=== PATIENT | female | born 1990 | race Caucasian/White ===

== ENCOUNTER 2016-12-28 19:36 | Emergency (ER) | payer OTHER ==
[2016-12-28 19:42] VITALS: RESP 16; TEMP 97.5
--- NOTE | 2016-12-28 20:10 | EDPHY ---
General Time Seen by Provider: 12/28/16 19:54 Narrative: CHIEF COMPLAINT: Hand laceration HISTORY OF PRESENT ILLNESS: hand laceration. cut the palm of her left hand while trying to get the PET of an avocado out with a knife. This is just proximal to the left pinky MCP joint. Moderate pain that has improved. Minimal bleeding that stopped with pressure. No numbness. No deficit of the pinky finger. No injury elsewhere. Tetanus is up-to-date as of 2016. Pain is worse with palpation and movement. Improved with rest. No radiating pain. No other associated complaints or modifying factors. REVIEW OF SYSTEMS: Ten systems reviewed and are negative unless otherwise noted in the HPI EXAMINATION General Appearance: Alert, no distress Head: normocephalic, atraumatic Eyes: Pupils equal and round, no conjunctival pallor or injection Cardiovascular: Symmetric radial pulses are 2+. Brisk cap refill in all 10 fingers. Neurological: A&O, nonfocal, Sensory symmetric. Strength symmetric. Skin: Warm and dry, no rash . 1.25 cm laceration to the palm of the left hand. Just proximal to the 5th MCP. Minimal bleeding. No foreign body appreciated. Neurovascular intact distally. Extremities: Tender over the area of laceration. She retains full flexion extension of all 5 fingers of the affected hand. Brisk cap refill and neurovascular intact distally. MDM: 8:05 p.m. laceration to the palm of the left hand just proximal to the MCP joint. No tendon involvement. Bleeding controlled. Neurovascular intact. I have anesthetized the wound. We will irrigate The wound and suture repair. 9:25 p.m. laceration to the palm left hand. She has been suture repaired without complication. She remains neuro intact post suture repair. There is full flexion extension of the affected finger. Wound care discussed. Return here in 7-10 days for suture removal. Return sooner for signs of infection as discussed. PROCEDURE: Laceration repair Consent: Verbal Location: Left hand, palmar Length of repair: 1.5 cm Complexity: simple Layer involvement: single Anesthesia: local anesthesia, lidocaine 1% plain, 5 mL Irrigation: Extensive Debridement: none Procedure description: after anesthesia the wound was explored. No foreign body in the wound bed. Flexor apparatus fully intact pre and post procedure. Wound was closed with 5-0 Ethilon. Good approximation of the borders. Good hemostasis noted no complication. Suture/Staple material: 5-0 Ethilon, 5 simple interrupted sutures. Wound care: Routine as discussed Suture/Staple removal: 7-10 Days SUPERVISION: This patient was independently evaluated without the aide of supervising physician. - History Smoking Status: Never smoked - Objective Vital Signs: Initial Vital Signs Temperature (C) 97.5 F 12/28/16 19:39 Heart Rate 70 12/28/16 19:39 Respiratory Rate 16 12/28/16 19:39 Blood Pressure 108/73 12/28/16 19:39 O2 Sat (%) 97 12/28/16 19:39 O2 Delivery Mode Room Air Allergies/Adverse Reactions: No Known Allergies Allergy (Unverified 12/28/16 19:42) Home Medications: Medication Instructions Recorded NK [No Known Home Meds] 12/28/16 Departure - Departure Disposition: Home, Routine, Self-Care Clinical Impression: Hand laceration Qualifiers: Encounter type: initial encounter Laterality: left Qualified Code(s): S61.412A - Laceration without foreign body of left hand, initial encounter Condition: Good Instructions: Laceration (ED), Care For Your Stitches (ED) Additional Instructions: Return here in 7-10 days for suture removal. Wound care as discussed. Return sooner for signs of infection as discussed. Referrals: NONE *PRIMARY CARE P,. [Primary Care Provider] - As per Instructions Danielle Pérez MD [Medical Doctor] - As per Instructions
[2016-12-28 21:49] VITALS: BP 123/68; PULSE 69; O2SAT 96
== END 2016-12-28 21:49 | disposition home or self-care (01) ==
PROC: 0HQGXZZ Repair Left Hand Skin, External Approach (ICD-10-PCS; principal; 2016-12-28)
DX: S61.412A Laceration without foreign body of left hand, initial encounter (principal); W26.0XXA Contact with knife, initial encounter